=== PATIENT | female | born 1975 | race African-American/Black ===

== ENCOUNTER 2018-12-07 22:35 | Emergency (ER) | payer SELFPAY ==
[2018-12-07 23:28] LABS: #Basophils 0.1 thou/uL (0.0-0.2); #Eosinphils 0.1 thou/uL (0.0-0.7); #Lymphocytes 1.8 thou/uL (1.20-3.40); #Monocytes 0.4 thou/uL (0.11-0.59); #Neutrophils 3.4 thou/uL (1.40-6.50); %Eosinophils 1.6 % (0.0-10.0); %Lymphocytes 31.3 % (21.0-51.0); %Monocytes 6.5 % (0.0-10.0); %Neutrophils 59.7 % (42.0-75.0); Hemoglobin 12.4 g/dL (12.0-16.0); Mean Corpuscular HGB CONC 33.8 g/dL (32.0-36.0); Mean Corpuscular Hemoglobin 30.6 pg (27.0-31.0); Mean Corpuscular Volume 90.7 fL (78.0-98.0); Mean Platelet Volume 6.3 fL (7.4-10.4); Platelet Count 237 thou/uL (130-400); RBC Distribution Width 11.3 % (11.5-14.5); Red Blood Cell (RBC) Count 4.04 mill/uL (4.20-5.40); White Blood Cell (WBC) Count 5.6 thou/uL (4.8-10.8)
[2018-12-07 23:39] LABS: ALT (SGPT) 12 U/L (8-55); AST (SGOT) 15 U/L (5-34); Albumin 3.8 g/dL (3.5-5.0); Alkaline Phosphatase 80 U/L (40-150); Anion Gap 16 mmol/L (10-20); BUN (Urea Nitrogen) 17 mg/dL (7.0-18.7); Bilirubin, Total 0.2 mg/dL (0.2-1.2); Calc. Creatinine Clearance 0 mL/min (70-130); Calcium 9.1 mg/dL (7.8-10.44); Carbon Dioxide 24 mmol/L (22-29); Chloride 106 mmol/L (98-107); Estimated GFR-MDRD 82; Glucose 101 mg/dL (70-105); Potassium 4.2 mmol/L (3.5-5.1); Protein, Total 6.8 g/dL (6.0-8.3); Sodium 142 mmol/L (136-145)
--- NOTE | 2018-12-08 00:29 | RAD ---
RADIOGRAPH CHEST 1 VIEW: DATE: 12/07/2018 11:13 PM HISTORY: 43-year-old female with dyspnea FINDINGS: There are no airspace densities, pulmonary edema, pneumothorax, or cardiomegaly. The lateral costophr enic angles are sharp. IMPRESSION: No acute cardiopulmonary findings.
== END 2018-12-08 00:10 | disposition home or self-care (01) ==
LOC: MADERS 22:35
DX: R07.89 Other chest pain (principal); I10 Essential (primary) hypertension; F41.9 Anxiety disorder, unspecified
CPT/HCPCS: 71045; 80053; 83880; 84484; 85025; 93005

== ENCOUNTER 2019-04-26 17:25 | Emergency (ER) | payer BC, SELFPAY ==
[2019-04-26 18:17] LABS: Bilirubin Negative (Negative); Blood, Urine Negative (Negative); Clarity Clear (Clear); Glucose, Urine (Dipstick) Negative (Negative); Leukocyte Negative (Negative); Nitrite Negative (Negative); Protein, Urine (Dipstick) Negative (Neg-Trace); Urobilinogen 0.2 mg/dL (Less than 2)
[2019-04-26 19:13] LABS: #Basophils 0.1 thou/uL (0.0-0.2); #Eosinphils 0.2 thou/uL (0.0-0.7); #Lymphocytes 2.3 thou/uL (1.20-3.40); #Monocytes 0.6 thou/uL (0.11-0.59); #Neutrophils 3.2 thou/uL (1.40-6.50); %Basophils 0.9 % (0.0-1.0); %Eosinophils 3.3 % (0.0-10.0); %Lymphocytes 35.6 % (21.0-51.0); %Monocytes 9.7 % (0.0-10.0); %Neutrophils 50.5 % (42.0-75.0); Mean Corpuscular HGB CONC 31.2 g/dL (32.0-36.0); Mean Corpuscular Hemoglobin 29.6 pg (27.0-31.0); Mean Corpuscular Volume 94.8 fL (78.0-98.0); Mean Platelet Volume 7.1 fL (7.4-10.4); Platelet Count 231 thou/uL (130-400); Red Blood Cell (RBC) Count 4.05 mill/uL (4.20-5.40); White Blood Cell (WBC) Count 6.3 thou/uL (4.8-10.8)
[2019-04-26 19:28] LABS: ALT (SGPT) 24 U/L (8-55); AST (SGOT) 19 U/L (5-34); Albumin 3.9 g/dL (3.5-5.0); Alkaline Phosphatase 63 U/L (40-110); Anion Gap 14 mmol/L (10-20); BUN (Urea Nitrogen) 14 mg/dL (7.0-18.7); Bilirubin, Total 0.2 mg/dL (0.2-1.2); Calc. Creatinine Clearance 0 mL/min (70-130); Calcium 8.9 mg/dL (7.8-10.44); Carbon Dioxide 23 mmol/L (22-29); Chloride 108 mmol/L (98-107); Estimated GFR-MDRD Greater than 90; Glucose 96 mg/dL (70-105); Potassium 4.1 mmol/L (3.5-5.1); Protein, Total 6.9 g/dL (6.0-8.3); Sodium 141 mmol/L (136-145)
[2019-04-26] MEDS ORDERED: Ondansetron ODT 4 MG TAB ONE (19:31)
--- NOTE | 2019-04-26 20:03 | CT ---
CT ABDOMEN AND PELVIS PERFORMED WITHOUT CONTRAST ENHANCEMENT: History: Abdominal pain, suprapubic pain x one week. History of ulcerative colitis. FINDINGS: The lung bases are clear of any infiltrative process. The liver, spleen, pancreas, and gallbladder regions all appear unremarkable. Right and left adrenal glands and right and left kidneys are normal in size. There are small periaort ic lymph nodes, not felt to be significant. No significant mesenteric adenopathy. No bowel wall thick ening or signs that would suggest any type of colitis. CT OF PELVIS PERFORMED WITHOUT INTRAVENOUS CONTRAST ENHANCEMENT: The appendix is normal. No adenopathy or mass. IMPRESSION: No acute findings of the abdomen or pelvis. POS: H
== END 2019-04-26 20:03 | disposition home or self-care (01) ==
LOC: MADERS 17:25
DX: A08.4 Viral intestinal infection, unspecified (principal); M06.9 Rheumatoid arthritis, unspecified; I10 Essential (primary) hypertension; F41.9 Anxiety disorder, unspecified
CPT/HCPCS: 36415; 74176; 80053; 81003; 85025; Q0162

== ENCOUNTER 2019-05-26 16:21 | Emergency (ER) | payer BC ==
[2019-05-26 17:16] LABS: #Basophils 0.1 thou/uL (0.0-0.2); #Eosinphils 0.2 thou/uL (0.0-0.7); #Monocytes 0.4 thou/uL (0.11-0.59); #Neutrophils 5.8 thou/uL (1.40-6.50); %Basophils 1.2 % (0.0-1.0); %Eosinophils 2.5 % (0.0-10.0); %Lymphocytes 23.3 % (21.0-51.0); %Monocytes 5.1 % (0.0-10.0); %Neutrophils 67.9 % (42.0-75.0); Hemoglobin 13.6 g/dL (12.0-16.0); Mean Corpuscular HGB CONC 31.9 g/dL (32.0-36.0); Mean Corpuscular Volume 94.1 fL (78.0-98.0); Platelet Count 141 thou/uL (130-400); Red Blood Cell (RBC) Count 4.53 mill/uL (4.20-5.40); White Blood Cell (WBC) Count 8.5 thou/uL (4.8-10.8)
[2019-05-26 17:46] LABS: ALT (SGPT) 18 U/L (8-55); AST (SGOT) 22 U/L (5-34); Albumin 4.4 g/dL (3.5-5.0); Alkaline Phosphatase 73 U/L (40-110); Anion Gap 17 mmol/L (10-20); BUN (Urea Nitrogen) 18 mg/dL (7.0-18.7); Bilirubin, Total 0.3 mg/dL (0.2-1.2); Calc. Creatinine Clearance 0 mL/min (70-130); Calcium 8.8 mg/dL (7.8-10.44); Carbon Dioxide 21 mmol/L (22-29); Chloride 105 mmol/L (98-107); Estimated GFR-MDRD 88; Globulin 3.3 g/dL (2.4-3.5); Glucose 97 mg/dL (70-105); Potassium 3.7 mmol/L (3.5-5.1); Protein, Total 7.7 g/dL (6.0-8.3); Sodium 139 mmol/L (136-145)
--- NOTE | 2019-05-26 18:16 | CT ---
CT of thecervical spine: 05/26/2019 COMPARISON:None available HISTORY:Trauma TECHNIQUE: Serial axial CT imaging at2.5 mm intervals from theskull base through the lung apices with out contrast. Coronal and sagittal reformatted imaging obtained. Findings:The visualized lung apices are grossly unremarkable. The imaged paranasal sinuses and mastoid air cells are well-aerated. The craniocervical junction, atlantoaxial interspace, occipital condyles, dens, C1 ring, and C1-2 art iculation demonstrate no acute findings. No displaced fracture or evidence of dislocation is seen involving the cervical spine. Impression:No acute osseous abnormality.
--- NOTE | 2019-05-26 18:17 | CT ---
CT of thehead: 05/26/2019 COMPARISON:None available HISTORY:Injury, trauma, pain TECHNIQUE: Serial axial CT imaging at5 mm intervals from thevertex through skull base without contras t. Coronal and sagittal reformatted imaging obtained Findings:The imaged paranasal sinuses and mastoid air cells are well aerated. No displaced calvarial fracture is seen. No intracranial hemorrhage, midline shift, mass effect, or ventricular enlargement. Impression:No intracranial hemorrhage or displaced calvarial fracture.
[2019-05-26 19:01] LABS: Bilirubin Negative (Negative); Blood, Urine Trace (Negative); Clarity Clear (Clear); Glucose, Urine (Dipstick) Negative (Negative); Leukocyte Negative (Negative); Nitrite Negative (Negative); Protein, Urine (Dipstick) Negative (Neg-Trace); Urobilinogen 0.2 mg/dL (Less than 2)
[2019-05-26 19:11] LABS: Bacteria/HPF Rare-Few HPF (None Seen); RBC/HPF 0-3 HPF (0-3); Squamous Epithelial 0-3 HPF (0-3); WBC/HPF None Seen HPF (0-3)
[2019-05-26] MEDS ORDERED: Acetaminophen 500 MG TAB ONE (20:54)
== END 2019-05-26 21:05 | disposition short-term general hospital (02) ==
LOC: MADERS 16:21
DX: S06.0X1A Concussion with loss of consciousness of 30 minutes or less, initial encounter (principal); I10 Essential (primary) hypertension; M06.9 Rheumatoid arthritis, unspecified; F32.9 Major depressive disorder, single episode, unspecified; F41.9 Anxiety disorder, unspecified; Z79.899 Other long term (current) drug therapy; V44.6XXA Car passenger injured in collision with heavy transport vehicle or bus in traffic accident, initial encounter
CPT/HCPCS: 36415; 70450; 72125; 81003; 81015; L0120

== ENCOUNTER 2019-09-06 16:06 | Outpatient (CLI) | payer BC ==
--- NOTE | 2019-09-06 16:25 | RAD ---
Right foot 3 views HISTORY: Foot pain. FINDINGS: Lisfranc joint alignment is anatomic. Joint spaces are preserved. Minimal subchondral sclerosis at the bases of the first metatarsal and proximal phalanx big toe. No acute fracture, dislocation, or aggressive osseous erosions. IMPRESSION : No acute osseous abnormalities are demonstrated.
--- NOTE | 2019-09-06 16:29 | RAD ---
Left foot 3 views HISTORY: Foot pain. FINDINGS: Lisfranc joint alignment is anatomic. Joint spaces are preserved. Minimal subchondral sclerosis at the bases of the first metatarsal and proximal phalanx big toe. A thin linear curved metallic density measuring up to 0.3 cm greatest diameter overlies the dorsal najera bcutaneous/skin tissues at the level of the head of the proximal phalanx big toe. No acute fracture, dislocation, or aggressive osseous erosions. IMPRESSION : No acute osseous abnormalities are demonstrated. The tiny curved thin metallic density over the dorsum of the big toe may lie on the skin or represent a shallowly embedded metallic foreign body.
== END 2019-09-06 16:07 | disposition home or self-care (01) ==
LOC: MADRAD 16:06
PROVIDERS: ATTEND Family Medicine
DX: M79.671 Pain in right foot (principal); M79.672 Pain in left foot; F41.1 Generalized anxiety disorder

== ENCOUNTER 2019-10-17 06:00 | Emergency (ER) | payer BC, OTHER ==
[2019-10-17] MEDS ORDERED: Sodium Chloride 0.9% 1,000 ML ONE (06:38)
[2019-10-17] MEDS ORDERED: Ketorolac Tromethamine 30 MG/ML VIAL ONE (06:38)
[2019-10-17 07:13] LABS: #Basophils 0.1 thou/uL (0.0-0.2); #Lymphocytes 1.5 thou/uL (1.20-3.40); #Monocytes 0.5 thou/uL (0.11-0.59); #Neutrophils 7.2 thou/uL (1.40-6.50); %Basophils 0.6 % (0.0-1.0); %Lymphocytes 15.8 % (21.0-51.0); %Monocytes 5.1 % (0.0-10.0); %Neutrophils 78.5 % (42.0-75.0); Hemoglobin 11.5 g/dL (12.0-16.0); Mean Corpuscular HGB CONC 32.4 g/dL (32.0-36.0); Mean Corpuscular Hemoglobin 29.6 pg (27.0-31.0); Mean Corpuscular Volume 91.4 fL (78.0-98.0); Mean Platelet Volume 6.9 fL (7.4-10.4); Platelet Count 265 thou/uL (130-400); RBC Distribution Width 11.5 % (11.5-14.5); Red Blood Cell (RBC) Count 3.89 mill/uL (4.20-5.40); White Blood Cell (WBC) Count 9.2 thou/uL (4.8-10.8)
[2019-10-17 07:25] LABS: ALT (SGPT) 21 U/L (8-55); AST (SGOT) 26 U/L (5-34); Albumin 3.7 g/dL (3.5-5.0); Alkaline Phosphatase 62 U/L (40-110); Anion Gap 16 mmol/L (10-20); BUN (Urea Nitrogen) 13 mg/dL (7.0-18.7); Bilirubin, Total 0.4 mg/dL (0.2-1.2); Calc. Creatinine Clearance 0 mL/min (70-130); Calcium 8.2 mg/dL (7.8-10.44); Carbon Dioxide 16 mmol/L (22-29); Chloride 107 mmol/L (98-107); Globulin 3.3 g/dL (2.4-3.5); Glucose 105 mg/dL (70-105); Potassium 3.4 mmol/L (3.5-5.1); Sodium 136 mmol/L (136-145)
== END 2019-10-17 08:05 | disposition home or self-care (01) ==
LOC: MADERS 06:00
DX: R06.02 Shortness of breath (principal); Z20.828 Contact with and (suspected) exposure to other viral communicable diseases; I10 Essential (primary) hypertension; M06.9 Rheumatoid arthritis, unspecified; F41.9 Anxiety disorder, unspecified; Z79.899 Other long term (current) drug therapy
CPT/HCPCS: 80053; 83605; 84484; 85025; 85379; 96361; 96374; J1885; J7050

== ENCOUNTER 2020-09-05 17:41 | Emergency (ER) | payer BC ==
[2020-09-05] MEDS ORDERED: Triamcinolone 40 MG/ML VIAL ONE (18:05)
== END 2020-09-05 18:29 | disposition home or self-care (01) ==
LOC: MADERS 17:41
DX: T49.8X1A Poisoning by other topical agents, accidental (unintentional), initial encounter (principal); L25.0 Unspecified contact dermatitis due to cosmetics; I10 Essential (primary) hypertension; M06.9 Rheumatoid arthritis, unspecified; Z79.899 Other long term (current) drug therapy
CPT/HCPCS: 96372; 99282; J3301

== ENCOUNTER 2021-08-08 17:31 | Emergency (ER) | payer BC | END 2021-08-08 18:03 | disposition left against medical advice (07) | LOC: MADERS 17:31 | DX: Z53.21 Procedure and treatment not carried out due to patient leaving prior to being seen by health care provider (principal) ==